=== PATIENT | female | born 1990 | race Two or more races ===

== ENCOUNTER 2018-07-14 19:59 | Inpatient (IN) | payer OTHER ==
[~2018-07-14] VITALS: Ht 167.6 cm; Wt 92.5 kg
[2018-07-14] MEDS ORDERED: IPRATROPIUM BROMIDE (0.02%) 0.5MG/2.5ML NEB HHN STA (20:53)
[2018-07-14] MEDS ORDERED: METHYLPREDNISOLONE SOD SUCC 125 MG/2 ML VIAL IV STA (20:53)
[2018-07-14] MEDS ORDERED: ALBUTEROL (0.083%) 2.5MG/3ML NEB HHN STA (20:53)
[2018-07-14 21:42] LABS: BASOPHILS % 0.9 % (0.0-2.0); EOSINOPHILS % 0.8 % (0.0-5.0); HEMATOCRIT. 39.7 % (36.0-48.0); HEMOGLOBIN. 13.6 g/dL (12.0-16.0); LYMPHOCYTES % 21.5 % (20.0-50.0); MEAN CORPUSCULAR HEMOGLOBIN 29.7 pg (28.0-32.0); MEAN CORPUSCULAR VOLUME 87.1 fL (81.0-99.0); MEAN PLATELET VOLUME 9.2 fl (7.4-10.4); MONOCYTES % 5.6 % (2.0-8.0); NEUTROPHILS % 71.2 % (40.0-76.0); PLATELET 358 x1000/uL (130-400); RED BLOOD CELL COUNT 4.56 mill/uL (4.2-5.4); RED CELL DISTRIBUTION WIDTH 12.5 % (11.6-14.6)
[2018-07-14 21:47] LABS: HCG SCREEN NEGATIVE
[2018-07-14 21:49] LABS: CHLORIDE 105 mEq/L (98-107)
[2018-07-14] MEDS ORDERED: SODIUM CHLORIDE 0.9% 1,000 ML IV ONE (21:50)
[2018-07-14] MEDS ORDERED: IBUPROFEN 600MG TABLET PO STA (21:50)
[2018-07-14] MEDS ORDERED: MAGNESIUM 2 G PREMIX 50 ML IV ONE (22:00)
[2018-07-14] MEDS ORDERED: DEXT 5% IV NR (23:00)
[2018-07-14] MEDS ORDERED: MAGNESIUM SULFATE IV NR (23:00)
[2018-07-14] MEDS ORDERED: WATER IV NR (23:00)
[2018-07-14] MEDS ORDERED: DIPHENHYDRAMINE 50MG/ML VIAL IV PRN (23:45)
[2018-07-14] MEDS ORDERED: MAGNESIUM HYDROXIDE 400MG/5ML 30ML UDC PO PRN (23:45)
[2018-07-14] MEDS ORDERED: PROMETHAZINE/DEXTROMETHORPHAN 6.25-15MG/5ML BOTTLE 120ML PO PRN (23:45)
[2018-07-14] MEDS ORDERED: TEMAZEPAM 15MG CAPSULE PO PRN (23:45)
[2018-07-14] MEDS ORDERED: IPRATROPIUM/ALBUTEROL 0.5-3(2.5)MG/3ML NEB INH PRN (23:45)
[2018-07-14] MEDS ORDERED: ONDANSETRON HCL 4MG/2ML INJ IV PRN (23:45)
[2018-07-14] MEDS ORDERED: ACETAMINOPHEN 325MG TABLET PO PRN (23:45)
[2018-07-14] MEDS ORDERED: MAGNESIUM/ALUMINUM HYDROXIDE/SIMETHICONE 30ML UDC PO PRN (23:45)
[2018-07-15] MEDS ORDERED: IOHEXOL-350 100 ML BOTTLE ONE (00:32)
[2018-07-15 00:45] VITALS: BP 122/67
[2018-07-15] MEDS: DEXT 5%/0.45% NACL 1000ML 1,000 ML IV SCH ×2 (03:05→11:00)
[2018-07-15] MEDS: KETOROLAC 30MG/ML VIAL IV PRN ×2 (03:17→10:16)
[2018-07-15 04:00] VITALS: BP 121/70
[2018-07-15] MEDS ORDERED: IPRATROPIUM/ALBUTEROL 0.5-3(2.5)MG/3ML NEB HHN SCH (04:00)
[2018-07-15] MEDS: METHYLPREDNISOLONE SOD SUCC 125 MG/2 ML VIAL IV SCH ×2 (05:11→14:00)
[2018-07-15] MEDS ORDERED: AZITHROMYCIN 500 MG TABLET PO SCH (06:00)
[2018-07-15 08:00] VITALS: BP 112/69
[2018-07-15] MEDS ORDERED: FAMOTIDINE 20MG TABLET PO SCH (09:00)
[2018-07-15] MEDS ORDERED: GUAIFENESIN 600MG ER TABLET PO SCH (09:00)
[2018-07-15 09:32] LABS: HEMATOCRIT. 37.5 % (36.0-48.0); HEMOGLOBIN. 12.6 g/dL (12.0-16.0); MEAN CORPUSCULAR HEMOGLOBIN 29.3 pg (28.0-32.0); MEAN CORPUSCULAR VOLUME 87.3 fL (81.0-99.0); MEAN PLATELET VOLUME 9.7 fl (7.4-10.4); PLATELET 303 x1000/uL (130-400); RED BLOOD CELL COUNT 4.29 mill/uL (4.2-5.4); RED CELL DISTRIBUTION WIDTH 12.5 % (11.6-14.6)
[2018-07-15 12:00] VITALS: BP 113/69
[2018-07-15 13:44] LABS: PLATELET ESTIMATE NORMAL
[2018-07-15 16:00] VITALS: BP 128/75
== END 2018-07-15 18:22 | disposition home or self-care (01) | DRG 145 ==
LOC: ER 19:59 → 6WST 23:29 → EDBEDREQTM 23:31 → EDBEDREQ 23:31 → ENRESERV 23:59 → 6WST 07-15 02:32
PROVIDERS: ADMIT Internal Medicine; ATTEND Internal Medicine
DX: J20.9 Acute bronchitis, unspecified (principal); R65.10 Systemic inflammatory response syndrome (SIRS) of non-infectious origin without acute organ dysfunction; J45.909 Unspecified asthma, uncomplicated; M54.9 Dorsalgia, unspecified
CPT/HCPCS: 36415; 71045; 71275; 80053; 83605; 83880; 84484; 84703; 85025; 85379; 87040; 87077; 87086; 87186; 87804; 93005; 94644; 96361; 96365; 96375; 99291; J1885; J2930; J3475; J7030; J7060; J7611; Q9967